=== PATIENT | female | born 1995 | race Caucasian/White ===

== ENCOUNTER 2024-06-10 09:51 | Inpatient (IN) | payer OTHER, SELFPAY ==
[2024-06-10] VITALS (10 sets, daily range): BP systolic 116–135; BP diastolic 58–79; PULSE 77–96; RESP 16–18; TEMP 36.2–36.9; O2SAT 97–99; BMI 50.4
[2024-06-10] MEDS: Lactated Ringers 1,000 ML 999 ML IV (10:17)
[2024-06-10 10:31] LABS: Absolute Lymphocyte Count 1.36 X10^3/uL (0.83-4.51); Absolute Neutrophil Count 7.6 X10^3/uL (2.0-7.7); Basophil# 0.02 X10^3/uL; Basophil% 0.2 % (0-1); Hematocrit 32.7 % (37-47); Hemoglobin 10.4 g/dL (12.0-15.0); Lymphocyte # 1.36 X10^3/ul (0.83-4.51); Lymphocyte % 14.1 % (19-41); Mean Corp Hgb Conc 31.8 g/dL (32-36); Mean Corpuscular Hgb 27.6 pg (27.0-32.0); Mean Corpuscular Volume 86.7 fL (81-99); Mean Platelet Vol. 9.7 fl (6.2-12.0); Monocyte# 0.52 X10^3/uL; Monocyte% 5.4 % (0-10); NRBC Flagged by Analyzer 0 % (0-5); Neutrophil # 7.58 X10^3/uL (2.7-7.7); Neutrophil % 78.9 % (47-70); Platelet Count 262 K/mm3 (150-450); RBC Distribution Width CV 15.2 % (11.6-14.6); Red Blood Count 3.77 M/mm3 (4.2-5.4); White Blood Count 9.6 K/mm3 (4.4-11.0)
[2024-06-10 11:15] LABS: Syphilis Antibodies Non-reactive
[2024-06-10] MEDS: Lactated Ringers 1,000 ML 150 ML IV (11:30)
[2024-06-10] MEDS: Acetaminophen 500 MG Tablet 1000 MG PO (11:38)
--- NOTE | 2024-06-10 12:11 | PCM.PN.OB ---
Subjective Subjective Scheduled c/s for transverse lie, however baby is vertex today. Plan was for IOL at 39 weeks. Patient would like to try IOL. Cervix 0.5/ 50/-3. Plan for cytotec than blount bulb Objective Data Objective Data Vital Signs: Vital Signs Temp Pulse Resp BP Pulse Ox O2 Del Method 97.3 F L 96 16 117/79 99 Room Air 06/10/24 11:02 06/10/24 11:02 06/10/24 11:02 06/10/24 11:02 06/10/24 11:02 06/10/24 11:02 Oxygen Delivery Method Room Air Weight: 137.5 kg Body Mass Index (BMI) 50.4 Lab / Micro Data 06/10/24 10:15 Labs: Laboratory Results - last 24 hr 06/10/24 10:15: WBC 9.6, RBC 3.77 L, Hgb 10.4 L, Hct 32.7 L, MCV 86.7, MCH 27.6, MCHC 31.8 L, RDW Std Deviation 48.0 H, RDW Coeff of Javad 15.2 H, Plt Count 262, MPV 9.7, Immature Gran % (Auto) 0.400, Neut % (Auto) 78.9 H, Lymph % (Auto) 14.1 L, [place] % (Auto) 5.4, Eos % (Auto) 1.0, Baso % (Auto) 0.2, Absolute Neuts (auto) 7.6, Absolute Lymphs (auto) 1.36, Nucleated RBC % 0, Syphilis Total Ab Non-reactive, Blood Type O POSITIVE, Antibody Screen NEGATIVE ROS Constitutional Constitutional: Denies fatigue, fever(s) or malaise Eyes Eyes: Denies change in vision ENT HEENT: Denies dizziness or headache(s) Cardiovascular Cardiovascular: Denies chest pain, dyspnea or lightheadedness Respiratory/Chest Respiratory/Chest: Denies cough or dyspnea Gastrointestinal Gastrointestinal: Denies change in bowel habits Genitourinary Genitourinary: Denies burning urination or genital lesions Integumentary Integumentary: Denies rash Neurologic Neurologic: Denies confusion, dizziness, headache(s), numbness or weakness Assessment & Plan (1) Vertex presentation of fetus: QUALIFIERS: Trimester: third trimester Qualified Code(s): Z34.93 - Encounter for supervision of normal , unspecified, third trimester (2) 39 weeks gestation of : (3) Obesity affecting in third trimester: QUALIFIERS: Obesity type affecting : unspecified obesity Qualified Code(s): O99.213 - Obesity complicating , third trimester
[2024-06-10] MEDS: miSOPROStol 25 MCG TABLET VAGINAL ×2 (13:34→17:31)
[2024-06-10] MEDS: Oxytocin 15 Units/NS 250ml 15 UNITS/250 ML IV.SOLN 2 UNITS IV (21:40)
[2024-06-11] VITALS (68 sets, daily range): BP systolic 107–165; BP diastolic 53–110; PULSE 76–139; RESP 16–18; TEMP 36.1–36.8; O2SAT 93–100
[2024-06-11] MEDS: Mag Hydrox/Al Hydrox/Simeth 30 ML UDC PO (03:15)
[2024-06-11] MEDS: Lactated Ringers 1,000 ML 50 ML IV (05:20)
--- NOTE | 2024-06-11 07:44 | PCM.HP.OB ---
HPI - General General Date of Admission: 06/10/24 Date of Service: 06/11/24 Chief Complaint: IOL HPI Narrative NEGRITO JOSEPH, is a 28 F who presents primary for transverse lie. Was found to be vertex by US. Plan changed to IOL for maternal obesity. Previous vaginal delivery of 9# baby. GBS negative Maternal Data Information Final KATARINA: 06/16/24 Gestational age: 39+1 [facility] Medical History Depression Anxiety Home Medications ?Medication ?Instructions ?Recorded ?Last Taken ?Type aspirin 81 mg tablet,delayed 81 mg PO DAILY 06/10/24 06/09/24 History release escitalopram oxalate 10 mg tablet 10 mg PO DAILY anxiety/depression 06/10/24 06/09/24 History [id number] 1 mg 1 cap PO DAILY 06/10/24 06/09/24 History capsule Allergy/AdvReac Type Severity Reaction Status Date / Time No Known Allergies Allergy Verified 06/10/24 10:27 Surgical History History of surgery Social History Smoking Status: Never smoker History 2 Elective abortions Hx Para 1 Spontaneous abortions Hx # Term Pregnancies Ectopic pregnancies Hx # Pregnancies Multiple births # of living children NST FHR Rate Baby A Baseline: 145 Variability:: Moderate Accelerations:: 15 x 15 Decelerations:: None NST Reactive:: Yes Uterine Activity:: none ROS Constitutional Constitutional: Denies fatigue, fever(s) or malaise Eyes Eyes: Denies change in vision ENT HEENT: Denies dizziness or headache(s) Cardiovascular Cardiovascular: Denies chest pain, dyspnea or lightheadedness Respiratory/Chest Respiratory/Chest: Denies cough or dyspnea Gastrointestinal Gastrointestinal: Denies change in bowel habits Genitourinary Genitourinary: Denies burning urination or genital lesions Integumentary Integumentary: Denies rash Neurologic Neurologic: Denies confusion, dizziness, headache(s), numbness or weakness Vital Signs Vital Signs Vital Signs: 06/10/24 11:02 06/10/24 12:54 06/10/24 12:54 Temperature 97.3 F L Temperature Source Temporal Pulse Rate 96 77 Respiratory Rate 16 Blood Pressure 117/79 126/74 H Blood Pressure Mean 91 BP Systolic 126 BP Diastolic 74 Blood Pressure Source Monitor Blood Pressure Position Semi-Fowlers Blood Pressure Location Right Arm Pulse Ox 99 Oxygen Delivery Method Room Air 06/10/24 12:54 06/10/24 12:54 06/10/24 12:54 Temperature Temperature Source Temporal Pulse Rate 85 Respiratory Rate Blood Pressure 126/74 H Blood Pressure Mean BP Systolic 126 BP Diastolic 74 Blood Pressure Source Blood Pressure Position Blood Pressure Location Pulse Ox Oxygen Delivery Method 06/10/24 12:54 06/10/24 12:54 06/10/24 12:54 Temperature 98.4 F Temperature Source Pulse Rate Respiratory Rate 18 Blood Pressure Blood Pressure Mean BP Systolic BP Diastolic Blood Pressure Source Blood Pressure Position Blood Pressure Location Pulse Ox 98 Oxygen Delivery Method 06/10/24 15:36 06/10/24 15:36 06/10/24 17:15 Temperature Temperature Source Pulse Rate 89 Respiratory Rate 16 Blood Pressure 135/74 H Blood Pressure Mean BP Systolic 135 BP Diastolic 74 Blood Pressure Source Blood Pressure Position Blood Pressure Location Pulse Ox Oxygen Delivery Method 06/10/24 17:15 06/10/24 17:16 06/10/24 17:16 Temperature 98.1 F Temperature Source Pulse Rate 89 Respiratory Rate Blood Pressure 116/68 Blood Pressure Mean BP Systolic 116 BP Diastolic 68 Blood Pressure Source Blood Pressure Position Blood Pressure Location Pulse Ox Oxygen Delivery Method 06/10/24 21:20 06/10/24 21:20 06/10/24 21:20 Temperature Temperature Source Temporal Pulse Rate 85 Respiratory Rate 16 Blood Pressure Blood Pressure Mean BP Systolic BP Diastolic Blood Pressure Source Blood Pressure Position Blood Pressure Location Pulse Ox Oxygen Delivery Method 06/10/24 21:20 06/10/24 21:21 06/10/24 21:21 Temperature Temperature Source Pulse Rate 85 Respiratory Rate Blood Pressure 134/59 H Blood Pressure Mean BP Systolic 134 BP Diastolic 59 Blood Pressure Source Blood Pressure Position Blood Pressure Location Pulse Ox 97 Oxygen Delivery Method 06/10/24 22:28 06/10/24 22:28 06/10/24 22:28 Temperature Temperature Source Temporal Pulse Rate 88 Respiratory Rate Blood Pressure 123/58 H Blood Pressure Mean BP Systolic 123 BP Diastolic 58 Blood Pressure Source Blood Pressure Position Blood Pressure Location Pulse Ox Oxygen Delivery Method 06/10/24 22:28 06/10/24 22:28 06/10/24 22:28 Temperature 97.5 F L Temperature Source Pulse Rate Respiratory Rate 16 Blood Pressure Blood Pressure Mean BP Systolic BP Diastolic Blood Pressure Source Blood Pressure Position Blood Pressure Location Pulse Ox 98 Oxygen Delivery Method 06/10/24 23:18 06/10/24 23:18 06/10/24 23:18 Temperature Temperature Source Temporal Pulse Rate 90 Respiratory Rate 16 Blood Pressure Blood Pressure Mean BP Systolic BP Diastolic Blood Pressure Source Blood Pressure Position Blood Pressure Location Pulse Ox Oxygen Delivery Method 06/10/24 23:18 06/10/24 23:18 06/10/24 23:19 Temperature 97.2 F L Temperature Source Pulse Rate Respiratory Rate Blood Pressure 131/66 H Blood Pressure Mean BP Systolic 131 BP Diastolic 66 Blood Pressure Source Blood Pressure Position Blood Pressure Location Pulse Ox 98 Oxygen Delivery Method 06/10/24 23:19 06/11/24 00:16 06/11/24 00:16 Temperature Temperature Source Pulse Rate 95 82 Respiratory Rate Blood Pressure Blood Pressure Mean BP Systolic BP Diastolic Blood Pressure Source Blood Pressure Position Blood Pressure Location Pulse Ox 98 Oxygen Delivery Method 06/11/24 00:17 06/11/24 00:17 06/11/24 00:17 Temperature 97.0 F L Temperature Source Temporal Pulse Rate Respiratory Rate 16 Blood Pressure Blood Pressure Mean BP Systolic BP Diastolic Blood Pressure Source Blood Pressure Position Blood Pressure Location Pulse Ox Oxygen Delivery Method 06/11/24 00:17 06/11/24 00:17 06/11/24 01:15 Temperature Temperature Source Temporal Pulse Rate 83 Respiratory Rate Blood Pressure 138/64 H Blood Pressure Mean BP Systolic 138 BP Diastolic 64 Blood Pressure Source Blood Pressure Position Blood Pressure Location Pulse Ox Oxygen Delivery Method 06/11/24 01:15 06/11/24 01:15 06/11/24 01:15 Temperature Temperature Source Pulse Rate 85 Respiratory Rate 16 Blood Pressure Blood Pressure Mean BP Systolic BP Diastolic Blood Pressure Source Blood Pressure Position Blood Pressure Location Pulse Ox 97 Oxygen Delivery Method 06/11/24 01:15 06/11/24 01:16 06/11/24 01:16 Temperature 97.0 F L Temperature Source Pulse Rate 86 Respiratory Rate Blood Pressure 137/68 H Blood Pressure Mean BP Systolic 137 BP Diastolic 68 Blood Pressure Source Blood Pressure Position Blood Pressure Location Pulse Ox Oxygen Delivery Method 06/11/24 02:00 06/11/24 02:00 06/11/24 02:00 Temperature Temperature Source Temporal Pulse Rate 76 Respiratory Rate Blood Pressure 129/62 H Blood Pressure Mean BP Systolic 129 BP Diastolic 62 Blood Pressure Source Blood Pressure Position Blood Pressure Location Pulse Ox Oxygen Delivery Method 06/11/24 02:00 06/11/24 02:00 06/11/24 03:15 Temperature 97.0 F L Temperature Source Temporal Pulse Rate Respiratory Rate 16 Blood Pressure Blood Pressure Mean BP Systolic BP Diastolic Blood Pressure Source Blood Pressure Position Blood Pressure Location Pulse Ox Oxygen Delivery Method 06/11/24 03:15 06/11/24 03:15 06/11/24 03:15 Temperature Temperature Source Pulse Rate 96 Respiratory Rate 16 Blood Pressure 136/82 H Blood Pressure Mean BP Systolic 136 BP Diastolic 82 Blood Pressure Source Blood Pressure Position Blood Pressure Location Pulse Ox Oxygen Delivery Method 06/11/24 03:15 06/11/24 03:15 06/11/24 04:19 Temperature 98.0 F Temperature Source Temporal Pulse Rate Respiratory Rate Blood Pressure Blood Pressure Mean BP Systolic BP Diastolic Blood Pressure Source Blood Pressure Position Blood Pressure Location Pulse Ox 98 Oxygen Delivery Method 06/11/24 04:19 06/11/24 04:19 06/11/24 04:19 Temperature Temperature Source Pulse Rate 89 Respiratory Rate 16 Blood Pressure Blood Pressure Mean BP Systolic BP Diastolic Blood Pressure Source Blood Pressure Position Blood Pressure Location Pulse Ox 95 Oxygen Delivery Method 06/11/24 04:19 06/11/24 04:20 06/11/24 04:20 Temperature 97.7 F L Temperature Source Pulse Rate 87 Respiratory Rate Blood Pressure 132/62 H Blood Pressure Mean BP Systolic 132 BP Diastolic 62 Blood Pressure Source Blood Pressure Position Blood Pressure Location Pulse Ox Oxygen Delivery Method 06/11/24 05:19 06/11/24 05:19 06/11/24 05:19 Temperature 97.8 F Temperature Source Temporal Pulse Rate Respiratory Rate 16 Blood Pressure Blood Pressure Mean BP Systolic BP Diastolic Blood Pressure Source Blood Pressure Position Blood Pressure Location Pulse Ox Oxygen Delivery Method 06/11/24 05:20 06/11/24 05:20 06/11/24 06:27 Temperature Temperature Source Temporal Pulse Rate 99 Respiratory Rate Blood Pressure 146/68 H Blood Pressure Mean BP Systolic 146 BP Diastolic 68 Blood Pressure Source Blood Pressure Position Blood Pressure Location Pulse Ox Oxygen Delivery Method 06/11/24 06:27 06/11/24 06:27 06/11/24 06:27 Temperature Temperature Source Pulse Rate 90 Respiratory Rate 16 Blood Pressure 129/67 H Blood Pressure Mean BP Systolic 129 BP Diastolic 67 Blood Pressure Source Blood Pressure Position Blood Pressure Location Pulse Ox Oxygen Delivery Method 06/11/24 06:27 06/11/24 06:27 Temperature 98.2 F Temperature Source Pulse Rate Respiratory Rate Blood Pressure Blood Pressure Mean BP Systolic BP Diastolic Blood Pressure Source Blood Pressure Position Blood Pressure Location Pulse Ox 98 Oxygen Delivery Method Weight Weight: 137.5 kg Body Mass Index (BMI) 50.4 Physical Exam Const alert and no apparent distress General Appearance: cooperative HEENT normocephalic Resp normal respiratory effort Cardio regular rate GI soft to palpation GI Narrative: gravid, nontender, appropriate for gestational age Extremity no calf tenderness General Extremity: edema Skin no wounds Rashes: No rashes noted Psych activity/motor behavior normal Labs Labs Labs: Blood Type O POSITIVE Antibody Screen NEGATIVE Hct 32.7 % (37-47) L Hgb 10.4 g/dL (12.0-15.0) L Syphilis Total Ab Non-reactive Assessment & Plan (1) Obesity affecting in third trimester: QUALIFIERS: Obesity type affecting : unspecified obesity Qualified Code(s): O99.213 - Obesity complicating , third trimester (2) 39 weeks gestation of : (3) Vertex presentation of fetus: QUALIFIERS: Trimester: third trimester Qualified Code(s): Z34.93 - Encounter for supervision of normal , unspecified, third trimester PLAN: Plan IOL cytotec and pitocin AROM when able Epidural prn
[2024-06-11] MEDS: Lactated Ringers 1,000 ML 999 ML IV (10:28)
[2024-06-11] MEDS: fentaNYL-bupivacaine (epidural) 100 ML BAG EPIDURAL (11:26)
--- NOTE | 2024-06-11 12:35 | OB.VAGDELI_ITS ---
Assessment & Plan (1) (spontaneous vaginal delivery): Maternal Data Information Final KATARINA: 06/16/24 Gestational age: 39+2 Vaginal Delivery Maternal Presentation Maternal Presentation: Elective Induction Maternal Presentation: IOL for maternal obesity Type of Induction: Pitocin and Cytotec Vaginal Delivery Information Procedure Performed: Spontaneous Vaginal Delivery Surgeon/Practitioner: Mary Linares Date of Procedure: 06/11/24 Pre-Procedure Diagnosis: term Post-Procedure Diagnosis: term Type of anesthesia: Epidural Estimated Blood Loss: 100 cc Time of Delivery: 12:17 Findings Description of procedure: IOL for maternal obesity and unstable lie. Found to be vertex on admission. IOL with Cytotec and Pitocin. SROM at 4 cm. Epidural placed and patient progressed quickly to complete. She pushed through three contractions to deliver OA. Shoulders delivered spontaneously. Nuchal cord x 2 cut on the perineum but unable to reduce as the cord was additionally around the body and left arm. Delivered through the cord. Spontaneous respiratory effort made by infant as cord was reduced from body and arm. Cord blood was collected and the placenta delivered with gentle traction. A left labial laceration was repaired with 3-0 Rapide. All lap and needle counts were correct Procedure findings: Cord around neck x2 around body and arm Presentation: Vertex and ENDY Amniotic Membrane Rupture Type: Spontaneous Amniotic Fluid Description: Lightly stained meconium Placental Delivery Description: Spontaneous Placenta Disposition: [facility] Specimen collected: Yes Description of specimen(s) removed: cord blood Cord Vessel Description: 3 Vessels Cord Entanglement: Around neck x 2, tight and Other (around body and left arm also) Nuchal Cord Compression: With compression Infant A Gender: Female (1 minute): 8 (5 minute): 9 Delayed Cord Clamping: No Property And Equipment Clerk student teaching coordinator: No Post Vaginal Deli Medications given after delivery: IV Pitocin Episiotomy Description: None Laceration: None (left labial) Complication Complications: No
[2024-06-11] MEDS: Oxytocin 15 Units/NS 250ml 15 UNITS/250 ML IV.SOLN 83 UNITS IV (12:50)
[2024-06-11] MEDS: Escitalopram Oxalate 10 MG Tablet PO (21:51)
[2024-06-12 03:55] VITALS: BP 129/76; PULSE 88; RESP 16; TEMP 36.4; O2SAT 98
[2024-06-12 08:39] VITALS: BP 113/78; PULSE 82; RESP 16; TEMP 36.4
--- NOTE | 2024-06-12 08:52 | PCM.PN.OB ---
Subjective Subjective Doing well. Ambulating and voiding without difficulty. Mild lochia. Breast feeding. Objective Data Objective Data Vital Signs: Vital Signs Temp Pulse Resp BP Pulse Ox O2 Del Method 97.5 F L 82 16 113/78 98 Room Air 06/12/24 08:39 06/12/24 08:39 06/12/24 08:39 06/12/24 08:39 06/12/24 03:55 06/12/24 08:39 Oxygen Delivery Method Room Air Weight: 137.5 kg Body Mass Index (BMI) 50.4 Intake & Output: Intake and Output for Last 24 Hours 06/10/24 06/11/24 06/12/24 23:59 23:59 23:59 Intake Total 2004. / 1853.89 / 1853.89 Output Total 850 / 850 1300 / 1300 Balance 1155.27 / 1155.27 553.89 / 553.89 Lab / Micro Data 06/10/24 10:15 ROS Constitutional Constitutional: Denies fatigue, fever(s) or malaise Eyes Eyes: Denies change in vision ENT HEENT: Denies dizziness or headache(s) Cardiovascular Cardiovascular: Denies chest pain, dyspnea or lightheadedness Respiratory/Chest Respiratory/Chest: Denies cough or dyspnea Gastrointestinal Gastrointestinal: Denies change in bowel habits Genitourinary Genitourinary: Denies burning urination or genital lesions Integumentary Integumentary: Denies rash Neurologic Neurologic: Denies confusion, dizziness, headache(s), numbness or weakness Physical Exam Const alert and no apparent distress Narrative: Fundus firm, below umbilicus. Assessment & Plan (1) (spontaneous vaginal delivery): PLAN: Plan Routine
[2024-06-12 12:33] VITALS: BP 125/75; PULSE 78; RESP 16; TEMP 36.4; O2SAT 98
[2024-06-12] MEDS: Prenatal Vits Tablet 1 TABLET PO (12:49)
[2024-06-12 15:14] VITALS: BP 140/80; PULSE 87; RESP 16
--- NOTE | 2024-06-12 17:30 | CASEMGMT ---
Social Work Assessment Labor and Delivery Unit Patient Address: [address] [place] [address] [place] [address] Phone number: [phone] Date of Referral: 06/11/24 Time of Referral: 15:05 Referred By: Mary Linares Date of Intervention: 06/12/24 Time of Intervention: 17:31 Reason for Referral: Anxiety, depression, borderline personality disorder History obtained from: Medical records, mother of baby (MOB) and father of baby (FOB).? Household composition: MOB, (Janine, age 26), FOB (Elbert, age 27), MOB?s 7 year old son (will be 7 on 06/13) ?Yo Nielsen, daughter to MOB and FOB, Svetlana, born 06/11/24 all live with MOB?s parents and grandmother. Patient's parent/guardian status: MOB and FOB have been together for 2 years and for 1 year. ??Both are actively involved and will be providing care for baby. MOB denied any concerns with domestic violence and described a positive and supportive relationship with the FOB. Medical History: : 2, Para, now 2. MOB received care beginning at 8 weeks and 1 day and visits were observed to be regular. Apgars: 8 and 9. Weight: 6 pounds, 15 oz. Outside Cutter, Dr. Miley Uriostegui. Educational Status: MOB and FOB denied any issues or concerns with reading or writing. Both MOB and FOB are high school graduates and attended some college. Financial Status: MOB and FOB reported their income is sufficient to meet the needs of their family at this time. 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 FOToña is also employed night time nanny at [employer]. Supplies: MOB and FOB reported they have all the supplies they need for baby at this time including but not limited to: Car Seat, bassinet, pack-n-play, diapers, bottles, breast pump and clothing. Childcare/Caregiver(s):? MOB reported she will be the primary caregiver of since she works from home and also stated the FOB will also assist in providing care during the times he is home from work. Transportation:? MOB and FOB reported they are both licensed drivers and have a reliable vehicle to take baby to and from all medical appointments. No transportation issues identified. Programs/Agencies Involved: MARY is currently involved in counseling at [facility] where she goes to counseling when she can. Patient did not describe counseling sessions as regular at this time. No other agencies identified or needed at this time.? Resources for Medicaid were declined. Children Services/Legal Issues:? Denied. Behavioral Health Issues: ??Mental Health History: ?MOB: Depression, anxiety, borderline personality disorder and hx of PDD. MOB reported she is currently on medication at this time and described it as effective in being able to successfully manage symptoms.? FOB denied any mental health issues/concerns. ?Substance Use History:? MOB and FOB denied any previous or current drug or alcohol abuse. ?Family History: MOB and FOB denied any family history of drug or alcohol abuse or mental health concerns. ???Drug Screens: None obtained at the time of this admission. ? Family/Social Stressors: ?MOB and FOB denied any current family or social stressors. Support Systems: Ample.? MARY identified her biggest supports as the FOB, both her parents, the FOB?s parents and MOB?s sister. Depression/Shaken Baby/Safe Sleeping: structural ironworker provided verbal and written education on PPD, Safe Sleeping and Shaken Baby.? Parents verbalized an understanding. ??? ASSESSMENT:? MOB and FOB provided consent to social work visit. Upon arrival, MOB was sitting upright in the hospital bed and FOB was at MOB?s bedside lying on the couch. Both MOB and FOB were verbally engaged.? structural ironworker observed positive interaction between the MOB and FOB and MOB appeared to be attached to as MOB was observed to be very gentle and attentive while holding . At the end of the assessment, case management social worker requested to speak with the MOB alone which MOB and FOB were both agreeable to. MOB reported feeling safe in home and denied any previous or current domestic violence, drug or alcohol abuse or unmanaged mental health either with herself or with the FOB. MOB reported she feels ?great? and denied having any current depression. Safe Plan of Care for related to substance use: N/A; not needed. ? PLAN:? Baby to be discharged home when ready.? structural ironworker also provided written information on depression, depression resources and Help Me Grow as additional resources offered by case management social worker which MOB and FOToña accepted. No other services requested or indicated. Mary Han, UNDERWATER HUNTER TRAPPER, PRECISION AGRICULTURE SPECIALIST
[2024-06-12 20:10] VITALS: BP 129/77; PULSE 96; RESP 18; TEMP 36.6; O2SAT 99
[2024-06-12] MEDS: Escitalopram Oxalate 10 MG Tablet PO (22:03)
[2024-06-13 02:31] VITALS: PULSE 92; RESP 18; O2SAT 99
--- NOTE | 2024-06-13 07:43 | PCM.PN.OB ---
Subjective Subjective Doing well. Ambulating and voiding without difficulty. Mild lochia. Breast feeding. Objective Data Objective Data Vital Signs: Vital Signs Temp Pulse Resp BP Pulse Ox O2 Del Method 97.9 F 92 18 129/77 H 99 Room Air 06/12/24 20:10 06/13/24 02:31 06/13/24 02:31 06/12/24 20:10 06/13/24 02:31 06/13/24 02:31 Oxygen Delivery Method Room Air Weight: 137.5 kg Body Mass Index (BMI) 50.4 Intake & Output: Intake and Output for Last 24 Hours 06/11/24 06/12/24 06/13/24 23:59 23:59 23:59 Intake Total 1853.89 / 1853.89 Output Total 1300 / 1300 Balance 553.89 / 553.89 Lab / Micro Data 06/10/24 10:15 ROS Constitutional Constitutional: Denies fatigue, fever(s) or malaise Eyes Eyes: Denies change in vision ENT HEENT: Denies dizziness or headache(s) Cardiovascular Cardiovascular: Denies chest pain, dyspnea or lightheadedness Respiratory/Chest Respiratory/Chest: Denies cough or dyspnea Gastrointestinal Gastrointestinal: Denies change in bowel habits Genitourinary Genitourinary: Denies burning urination or genital lesions Integumentary Integumentary: Denies rash Neurologic Neurologic: Denies confusion, dizziness, headache(s), numbness or weakness Physical Exam Const alert and no apparent distress Narrative: Fundus firm, below umbilicus. Assessment & Plan (1) (spontaneous vaginal delivery): PLAN: Plan Discharge home
--- NOTE | 2024-06-13 07:43 | PCM.DC.SUM ---
Providers Date of Admission: 06/10/24 Date of Discharge: 06/13/24 Primary Care Physician: Dr. Devendra Baig MD Reason For Visit: PRIMARY C SECTION Diagnosis Discharge Diagnosis (1) (spontaneous vaginal delivery): Status: Acute Code(s): O80 - Encounter for full-term uncomplicated delivery Plan Discharge home Medications at Discharge Home Medications escitalopram oxalate 10 mg tablet 10 mg PO DAILY anxiety/depression 06/10/24 [id number] 1 mg capsule 1 cap PO DAILY 06/10/24 Hospital Course Operations None Procedures None Summary of Care Provided Minutes Spent on Discharge: 20 Physical Exam Const alert and no apparent distress Narrative: Fundus firm, below umbilicus. Weight / BMI Weight Weight: 137.5 kg Body Mass Index (BMI) 50.4 ABG / Lab / Microbiology Data 06/10/24 10:15 D/C Instructions May resume sexual activity in: 6 weeks DC O2, CPAP, BIPAP Needs Home O2 Discharge instructions: No Please Follow Up With: Lily Packer MD When: Follow up with our office in 1-2 and 6 weeks or as needed. [phone] Meaningful Use Info Meaningful Use Meaningful Use Diagnoses (Choose all that apply): None applicable Ischemic Stroke Statin Dosing Therapy Reference: STATIN DOSE THERAPY REFERENCE: * Patients > 75 years receive moderate or high dose statin therapy. * Patients 75 years or YOUNGER should receive HIGH intensity statin dose unless contraindicated. You will be required to document reason for non-treatment if statin daily dose does not meet guidelines. HIGH DOSE STATIN THERAPY DAILY Atorvastatin > than or = to 40 mg Rosuvastatin > than or = to 20 mg Amlodipine + Atorvastatin > than or = to 2.5/40 mg Ezetimibe + Simvastatin 10/80 mg Simvastatin 80mg Discharge Plan Admission Admit Date/Time: 06/10/24 09:51 Primary Reason for Your Visit: labor and delivery Attending Provider: Mary Linares Primary Care Provider: Devendra Baig Discharge Orders/Prescriptions Prescriptions: Continued escitalopram oxalate 10 mg tablet 10 mg PO DAILY [id number] 1 mg capsule 1 cap PO DAILY Discontinued aspirin 81 mg tablet,delayed release (DR/EC) 81 mg PO DAILY Referrals / Follow Up: Devendra Baig MD [Primary Care Provider] - Disposition Disposition (needs filled in before D/C Order can be placed): Home, Self Care
[2024-06-13 08:30] VITALS: BP 128/76; PULSE 84; RESP 16; TEMP 36.3; O2SAT 97
== END 2024-06-13 10:46 | disposition home or self-care (01) | DRG 807 ==
PROVIDERS: Admitting Provider Obstetrics & Gynecology; PCP Internal Medicine; Referring Provider Obstetrics & Gynecology; Visit Provider Obstetrics & Gynecology
PROC: (CPT 59514; principal; 2024-06-10 11:45)
DX: O99.214 Obesity complicating childbirth (principal); Z37.0 Single live birth; O99.344 Other mental disorders complicating childbirth; F32.A Depression, unspecified; F41.9 Anxiety disorder, unspecified; O77.0 Labor and delivery complicated by meconium in amniotic fluid; O69.1XX0 Labor and delivery complicated by cord around neck, with compression, not applicable or unspecified; O70.0 First degree perineal laceration during delivery; Z3A.39 39 weeks gestation of pregnancy; Z79.899 Other long term (current) drug therapy
CPT/HCPCS: 59025; 59050; 76815; 85025; 86780; 86850; 86900; 86901; 99221; G0378; J2405